=== PATIENT | female | born 1945 | race Caucasian/White ===

== ENCOUNTER 2017-06-10 13:10 | Emergency (ER) | payer MEDICARE ==
[~2017-06-10 13:10] MED LIST: EPINEPHrine 1 MG/10 ML Abboject SYRINGE ONE; Sodium Chloride 0.9% 1,000 ML BAG ONE
== END 2017-06-10 13:16 | disposition expired ==
LOC: MADERS 13:10
DX: I46.9 Cardiac arrest, cause unspecified (principal); J96.90 Respiratory failure, unspecified, unspecified whether with hypoxia or hypercapnia; I10 Essential (primary) hypertension; K21.9 Gastro-esophageal reflux disease without esophagitis; F41.9 Anxiety disorder, unspecified; E03.9 Hypothyroidism, unspecified; J45.909 Unspecified asthma, uncomplicated; E78.5 Hyperlipidemia, unspecified; Z79.899 Other long term (current) drug therapy
CPT/HCPCS: 96374; J0171; J7050